=== PATIENT | male | born 1965 | race Caucasian/White ===

== ENCOUNTER 2017-09-22 20:02 | Inpatient (IN) | payer MEDICAID, OTHER ==
[2017-09-22 20:52] LABS: ADD MAN DIFF? NO
[2017-09-22 20:54] LABS: BASOPHILS % 0.3 % (0.0-2.0); EOSINOPHILS % 0.1 % (0.0-7.0); HEMOGLOBIN 15.3 g/dl (14.0-18.0); LYMPHOCYTES # 1.4 10^3/ul (0.8-2.9); LYMPHOCYTES % 11.6 % (15.0-51.0); MEAN CORPUSCULAR HEMOGLOBIN 28.5 pg (29.0-33.0); MEAN CORPUSCULAR HGB CONC 34.8 g/dl (32.0-37.0); MEAN CORPUSCULAR VOLUME 81.9 fl (82.0-101.0); MEAN PLATELET VOLUME 9.8 fl (7.4-10.4); MONOCYTE # 0.7 10^3/ul (0.3-0.9); MONOCYTES % 6.2 % (0.0-11.0); NEUTROPHIL # 9.6 10^3/ul (1.6-7.5); NEUTROPHILS % 81.4 % (39.0-77.0); PLATELET COUNT 196 10^3/UL (140-415); RED BLOOD COUNT 5.37 10^6/ul (4.70-6.10); RED CELL DISTRIBUTION WIDTH 12.2 % (11.5-14.5)
[2017-09-22 20:54] LABS: WHITE BLOOD COUNT 11.8 10^3/ul (4.8-10.8)
[2017-09-22 21:09] LABS: ALANINE AMINOTRANSFERASE 39 IU/L (13-69); ALBUMIN 3.7 g/dl (3.3-4.9); ALBUMIN/GLOBULIN RATIO 0.97; ALKALINE PHOSPHATASE 123 IU/L (42-121); ANION GAP 12 (8-16); ASPARTATE AMINO TRANSFERASE 22 IU/L (15-46); BILIRUBIN,INDIRECT 1.3 mg/dl (0-1.1); BILIRUBIN,TOTAL 1.3 mg/dl (0.2-1.3); BLOOD UREA NITROGEN 14 mg/dl (7-20); CALCIUM 8.6 mg/dl (8.4-10.2); CARBON DIOXIDE 27 mmol/L (21-31); CHLORIDE 96 mmol/L (97-110); CREATININE 0.62 mg/dl (0.61-1.24); GLUCOSE 359 mg/dl (70-220); POTASSIUM 4.1 mmol/L (3.5-5.1); SODIUM 131 mmol/L (135-144); TOTAL PROTEIN 7.5 g/dl (6.1-8.1)
[2017-09-22 21:20] LABS: TROPONIN-I < 0.010 ng/ml (0.000-0.120)
[2017-09-22 21:35] LABS: LACTIC ACID 1.4 mmol/L (0.5-2.0)
[2017-09-22] MEDS ORDERED: ACETAMINOPHEN 500 MG TAB (22:13)
[2017-09-22] MEDS ORDERED: LABETALOL HCL 20MG INJ (22:13)
[2017-09-22] MEDS ORDERED: NITROGLYCERIN (SL) 0.4 MG TAB SL (22:30)
[2017-09-22] MEDS: ACETAMINOPHEN 500 MG TAB PO (22:47)
[2017-09-22] MEDS: LABETALOL HCL 20MG INJ IV (22:47)
[2017-09-22 23:04] LABS: B-TYPE NATRIURETIC PEPTIDE 604 PG/ML (0-125)
[2017-09-22 23:12] LABS: ADD UMIC YES; UR AMORPHOUS CRYSTAL FEW /HPF (NONE SEEN); UR ASCORBIC ACID NEGATIVE (NEGATIVE); UR BACTERIA FEW /HPF (NONE SEEN); UR BILIRUBIN (Dip) NEGATIVE (NEGATIVE); UR BLOOD (Dip) 2+ mg/dL (NEGATIVE); UR CLARITY SLIGHTLY CLOUDY (CLEAR); UR COLOR YELLOW (YELLOW); UR GLUCOSE (Dip) 3+ mg/dL (NEGATIVE); UR KETONES (Dip) NEGATIVE (NEGATIVE); UR LEUKOCYTE ESTERASE (Dip) 3+ Leu/ul (NEGATIVE); UR NITRITE (Dip) POSITIVE (NEGATIVE); UR RBC 3 /HPF (0-5); UR SPECIFIC GRAVITY (Dip) 1.014 (1.003-1.030); UR SQUAMOUS EPITHELIAL CELL FEW /HPF (FEW); UR TOTAL PROTEIN (Dip) 1+ mg/dl (NEGATIVE); UR UROBILINOGEN (Dip) NEGATIVE (NEGATIVE); UR WBC 120 /HPF (0-5)
[2017-09-22 23:15] LABS: LACTIC ACID 1.6 mmol/L (0.5-2.0)
[2017-09-22] MEDS: FUROSEMIDE 40 MG INJ IV (23:23)
[2017-09-22] MEDS: CEFTRIAXONE 1 GM/50 ML (PMX) 50 ML IVPB (23:45)
[2017-09-23 01:27] LABS: LACTIC ACID 1.3 mmol/L (0.5-2.0)
[2017-09-23] MEDS: LABETALOL HCL 20MG INJ IV (04:59)
[2017-09-23] MEDS ORDERED: GLUCOSE GEL 15 GRAM TUBE PO ×2 (05:00)
[2017-09-23] MEDS ORDERED: ONDANSETRON 4 MG INJ IV (05:00)
[2017-09-23] MEDS ORDERED: GLUCOSE GEL 15 GRAM TUBE BUCCAL (05:00)
[2017-09-23] MEDS ORDERED: GLUCAGON 1 MG INJ IM (05:00)
[2017-09-23] MEDS ORDERED: DEXTROSE 50% 50 ML SYRINGE IV ×2 (05:00)
[2017-09-23] MEDS: ACETAMINOPHEN 325 MG TAB PO ×3 (05:01→22:37)
[2017-09-23 06:09] LABS: ADD MAN DIFF? NO
[2017-09-23 06:20] LABS: BASOPHIL # 0.1 10^3/ul (0.0-0.1); BASOPHILS % 0.4 % (0.0-2.0); HEMATOCRIT 45.8 % (42.0-52.0); HEMOGLOBIN 15.6 g/dl (14.0-18.0); LYMPHOCYTES # 1.2 10^3/ul (0.8-2.9); LYMPHOCYTES % 9.5 % (15.0-51.0); MEAN CORPUSCULAR HGB CONC 34.1 g/dl (32.0-37.0); MEAN CORPUSCULAR VOLUME 82.1 fl (82.0-101.0); MEAN PLATELET VOLUME 10.3 fl (7.4-10.4); MONOCYTE # 0.7 10^3/ul (0.3-0.9); MONOCYTES % 5.8 % (0.0-11.0); NEUTROPHIL # 10.7 10^3/ul (1.6-7.5); NEUTROPHILS % 83.8 % (39.0-77.0); PLATELET COUNT 182 10^3/UL (140-415); RED BLOOD COUNT 5.58 10^6/ul (4.70-6.10); RED CELL DISTRIBUTION WIDTH 12.2 % (11.5-14.5)
[2017-09-23 06:20] LABS: WHITE BLOOD COUNT 12.7 10^3/ul (4.8-10.8)
[2017-09-23] MEDS ORDERED: CEFTRIAXONE 1 GM/50 ML (PMX) 50 ML IVPB (06:30)
[2017-09-23 06:40] LABS: ALANINE AMINOTRANSFERASE 32 IU/L (13-69); ALBUMIN 3.6 g/dl (3.3-4.9); ALBUMIN/GLOBULIN RATIO 0.97; ALKALINE PHOSPHATASE 97 IU/L (42-121); ANION GAP 12 (8-16); ASPARTATE AMINO TRANSFERASE 21 IU/L (15-46); BLOOD UREA NITROGEN 12 mg/dl (7-20); CALCIUM 8.3 mg/dl (8.4-10.2); CARBON DIOXIDE 26 mmol/L (21-31); CHLORIDE 98 mmol/L (97-110); CHOL/HDL RATIO 4.3 RATIO; CHOLESTEROL 122 mg/dl (100-200); CREATININE 0.57 mg/dl (0.61-1.24); GLUCOSE 303 mg/dl (70-220); HDL CHOLESTEROL 28 mg/dl (28-71); LDL CHOLESTEROL,CALCULATED 74 mg/dl; MAGNESIUM 1.9 mg/dl (1.7-2.5); PHOSPHORUS 3.2 mg/dl (2.5-4.9); POTASSIUM 3.9 mmol/L (3.5-5.1); SODIUM 132 mmol/L (135-144); TOTAL PROTEIN 7.3 g/dl (6.1-8.1); TRIGLYCERIDES 101 mg/dl (0-149)
[2017-09-23 06:50] LABS: HEMOGLOBIN A1C 12.8 % (0-5.9)
[2017-09-23] MEDS: FUROSEMIDE 20 MG INJ IV ×2 (07:12→17:22)
[2017-09-23] MEDS: INSULIN ASPART [NOVOLOG] 3 ML PEN SC ×4 (07:58→20:41)
[2017-09-23] MEDS: METOPROLOL 25 MG TAB PO ×2 (11:24→20:36)
[2017-09-23] MEDS: AMLODIPINE 10 MG TAB PO (13:50)
[2017-09-23] MEDS: ENOXAPARIN 40 MG/0.4 ML SYG SC (13:52)
[2017-09-23] MEDS: metFORMIN 500 MG TAB PO (17:21)
[2017-09-23] MEDS: CEFTRIAXONE 1 GM/50 ML (PMX) 50 ML IVPB (22:35)
[2017-09-24] MEDS: INSULIN GLARGINE [LANTus] (100 UNITS/ML) SYG SC ×2 (00:26→20:46)
[2017-09-24] MEDS: ACCU-CHEK XX (02:29)
[2017-09-24] MEDS: ACETAMINOPHEN 325 MG TAB PO ×3 (06:16→22:20)
[2017-09-24] MEDS: FUROSEMIDE 20 MG INJ IV (06:17)
[2017-09-24 06:33] LABS: ADD MAN DIFF? NO
[2017-09-24 06:36] LABS: WHITE BLOOD COUNT 7.2 10^3/ul (4.8-10.8)
[2017-09-24 06:36] LABS: BASOPHILS % 0.4 % (0.0-2.0); EOSINOPHILS % 0.4 % (0.0-7.0); HEMATOCRIT 44.2 % (42.0-52.0); HEMOGLOBIN 15.1 g/dl (14.0-18.0); LYMPHOCYTES # 1.8 10^3/ul (0.8-2.9); LYMPHOCYTES % 25.4 % (15.0-51.0); MEAN CORPUSCULAR HEMOGLOBIN 28.4 pg (29.0-33.0); MEAN CORPUSCULAR HGB CONC 34.2 g/dl (32.0-37.0); MEAN CORPUSCULAR VOLUME 83.1 fl (82.0-101.0); MEAN PLATELET VOLUME 10.3 fl (7.4-10.4); MONOCYTE # 0.8 10^3/ul (0.3-0.9); MONOCYTES % 11.3 % (0.0-11.0); NEUTROPHIL # 4.5 10^3/ul (1.6-7.5); NEUTROPHILS % 62.1 % (39.0-77.0); PLATELET COUNT 185 10^3/UL (140-415); RED BLOOD COUNT 5.32 10^6/ul (4.70-6.10); RED CELL DISTRIBUTION WIDTH 12.4 % (11.5-14.5)
[2017-09-24 07:03] LABS: ANION GAP 11 (8-16); BLOOD UREA NITROGEN 12 mg/dl (7-20); CALCIUM 8.4 mg/dl (8.4-10.2); CARBON DIOXIDE 27 mmol/L (21-31); CHLORIDE 98 mmol/L (97-110); CREATININE 0.62 mg/dl (0.61-1.24); GLUCOSE 264 mg/dl (70-220); POTASSIUM 3.8 mmol/L (3.5-5.1); SODIUM 132 mmol/L (135-144)
[2017-09-24] MEDS: INSULIN ASPART [NOVOLOG] 3 ML PEN SC ×4 (07:49→20:46)
[2017-09-24] MEDS: metFORMIN 500 MG TAB PO ×2 (07:59→17:27)
[2017-09-24] MEDS: METOPROLOL 25 MG TAB PO (08:03)
[2017-09-24] MEDS: AMLODIPINE 10 MG TAB PO (08:03)
[2017-09-24] MEDS: ENOXAPARIN 40 MG/0.4 ML SYG SC (08:05)
[2017-09-24] MEDS ORDERED: LISINOPRIL 10 MG TAB PO (09:00)
[2017-09-24] MEDS ORDERED: INSULIN GLARGINE [LANTus] (100 UNITS/ML) SYG SC (20:00)
[2017-09-24] MEDS: CEFTRIAXONE 1 GM/50 ML (PMX) 50 ML IVPB (22:20)
[2017-09-25] MEDS: ACCU-CHEK XX (02:05)
[2017-09-25 06:50] LABS: ANION GAP 11 (8-16); BLOOD UREA NITROGEN 14 mg/dl (7-20); CALCIUM 8.9 mg/dl (8.4-10.2); CARBON DIOXIDE 28 mmol/L (21-31); CHLORIDE 101 mmol/L (97-110); CREATININE 0.65 mg/dl (0.61-1.24); GLUCOSE 264 mg/dl (70-220); SODIUM 136 mmol/L (135-144)
[2017-09-25] MEDS: INSULIN ASPART [NOVOLOG] 3 ML PEN SC ×2 (07:57→11:29)
[2017-09-25] MEDS: metFORMIN 500 MG TAB PO (08:05)
[2017-09-25] MEDS: AMLODIPINE 10 MG TAB PO (08:05)
[2017-09-25] MEDS: ENOXAPARIN 40 MG/0.4 ML SYG SC (08:08)
[2017-09-25] MEDS: LISINOPRIL 10 MG TAB PO (14:51)
[2017-09-25] MEDS ORDERED: metFORMIN 850 MG TAB PO (17:55)
[2017-09-25] MEDS ORDERED: INSULIN ASPART [NOVOLOG] 3 ML PEN SC (17:55)
[2017-09-25] MEDS ORDERED: INSULIN GLARGINE [LANTus] (100 UNITS/ML) SYG SC (20:00)
== END 2017-09-25 17:40 | disposition home or self-care (01) | DRG 871 ==
LOC: E/R 20:02 → TEL 09-23 00:22
DX: A41.9 Sepsis, unspecified organism (principal); I50.31 Acute diastolic (congestive) heart failure; N39.0 Urinary tract infection, site not specified; I16.0 Hypertensive urgency; Z87.891 Personal history of nicotine dependence; I11.0 Hypertensive heart disease with heart failure; E11.9 Type 2 diabetes mellitus without complications; E78.5 Hyperlipidemia, unspecified; E66.9 Obesity, unspecified; Z68.29 Body mass index [BMI] 29.0-29.9, adult
CPT/HCPCS: 70450; 71045; 80048; 80053; 80061; 81001; 82962; 83036; 83605; 83735; 83880; 84100; 84443; 84484; 85025; 87040; 87086; 93005; 93306; 96365; 96375; 99285-25